=== PATIENT | male | born 1950 | race African-American/Black ===

== ENCOUNTER 2019-04-23 20:29 | Emergency (ER) | payer OTHER ==
[~2019-04-23] VITALS: Ht 180.3 cm; Wt 95.0 kg
[2019-04-23 21:36] VITALS: BP 169/97
== END 2019-04-23 23:11 | disposition left against medical advice (07) ==
LOC: ER 20:35
DX: M25.531 Pain in right wrist (principal); Z53.21 Procedure and treatment not carried out due to patient leaving prior to being seen by health care provider
CPT/HCPCS: 73110; 73130